=== PATIENT | female | born 1970 | race Caucasian/White ===

== ENCOUNTER 2022-07-23 07:09 | Day surgery (SDC) | payer OTHER ==
[2022-07-22 18:32] LABS: ALBUMIN 4.3 g/dL (3.4-5.0); ANION GAP 13.3 (8-16); BASOPHILS # (AUTO) 0.1 K/uL (0.00-0.22); CARBON DIOXIDE 26.5 mmol/L (21-32); CREATININE 0.7 mg/dL (0.6-1.3); EOSINOPHILS # (AUTO) 0.1 K/uL (0-0.4); EOSINOPHILS % (AUTO) 1.7 % (0.0-4.0); HEMATOCRIT 35.2 % (36-48); LYMPHOCYTES # (AUTO) 2.3 K/uL (2.5-16.5); LYMPHOCYTES % (AUTO) 35.6 % (20.5-51.1); MEAN CORPUSCULAR HEMOGLOBIN 21 pg (27-31); MEAN CORPUSCULAR HGB CONC 31 g/dL (33-37); MEAN CORPUSCULAR VOLUME 67.2 fL (80-94); MONOCYTES # (AUTO) 0.4 K/uL (0.8-1.0); NEUTROPHILS # (AUTO) 3.6 K/uL (1.8-7.7); NEUTROPHILS % (AUTO) 55.7 % (42.2-75.2); PLATELET COUNT (AUTO) 420 K/uL (140-450); POTASSIUM 3.8 mmol/L (3.5-5.1); RED BLOOD CELL COUNT(AUTO) 5.24 MIL/uL (4.20-5.40); RED CELL DISTRIBUTION WIDTH 19.8 % (11.6-13.7); TOTAL BILIRUBIN 0.9 mg/dL (0.0-1.0); WHITE BLOOD COUNT (AUTO) 6.4 K/uL (4.8-10.8)
[~2022-07-23] VITALS: Ht 162.6 cm; Wt 68.9 kg
[2022-07-23] MEDS ORDERED: BUPIVACAINE-MPF/EPI 0.5% 30 ML VIAL INJ ONE (08:44)
[2022-07-23] MEDS ORDERED: BUPIVACAINE-MPF/EPI 0.25% 30 ML VIAL INJ ONE (08:45)
[2022-07-23] MEDS ORDERED: VASOPRESSIN 20 UNITS/ML VIAL IM ONE ×2 (08:55→09:25)
[2022-07-23] MEDS ORDERED: ROCURONIUM 50 MG/5 ML VIAL IV ONE (09:11)
[2022-07-23] MEDS ORDERED: KETOROLAC 30 MG/ML VIAL ONE (09:11)
[2022-07-23] MEDS ORDERED: DEXAMETHASONE 4 MG/ML VIAL ONE (09:11)
[2022-07-23] MEDS ORDERED: SUCCINYLCHOLINE CHLORIDE 200 MG/10 ML VIAL IVP ONE (09:12)
[2022-07-23] MEDS ORDERED: ONDANSETRON 4 MG/2 ML VIAL ONE (09:12)
[2022-07-23] MEDS ORDERED: PROPOFOL 200 MG/20 ML VIAL IV ONE (09:12)
[2022-07-23] MEDS ORDERED: fentaNYL citrate 0.05 MG/ML VIAL ONE (09:12)
[2022-07-23] MEDS ORDERED: METOCLOPRAMIDE 10 MG/2 ML INJ VIAL ONE (09:12)
[2022-07-23] MEDS ORDERED: HYDROmorphone PFS 2 MG/ML SYR ONE (09:49)
[2022-07-23] MEDS ORDERED: SUGAMMADEX SODIUM 200 MG/2 ML VIAL IV ONE (09:50)
[2022-07-23] MEDS ORDERED: ONDANSETRON 4 MG/2 ML VIAL IVP PRN (11:45)
[2022-07-23] MEDS ORDERED: HYDROmorphone 1 MG/ML AMP IVP PRN (11:45)
== END 2022-07-23 13:30 | disposition home or self-care (01) ==
LOC: MDS 07:09 → MMU 07:09 → MDS 13:30
PROVIDERS: ATTEND Obstetrics & Gynecology
DX: D25.9 Leiomyoma of uterus, unspecified (principal); N83.202 Unspecified ovarian cyst, left side; N92.0 Excessive and frequent menstruation with regular cycle; Z79.899 Other long term (current) drug therapy
CPT/HCPCS: 36415; 58545; 58662; 71045; 80053; 85025; 86886; 86900; 86901; 93005; J0330; J0690; J1100; J1170; J1885; J2405; J2704; J2765; J3010; J3490; J7060